=== PATIENT | female | born 1985 | race Asian ===

== ENCOUNTER 2024-01-28 13:21 | Outpatient (CLI) | payer OTHER, SELFPAY ==
--- NOTE | ~2024-01-28 | US_ITS ---
EXAMINATION: US pelvic complete DATE: 01/28/2024 13:39 INDICATION: Displacement of intrauterine contraceptive device. TECHNIQUE: Multiple transabdominal sonographic images of the pelvis were obtained. COMPARISON: Ultrasound 04/26/2018 FINDINGS: The uterus measures 11.7 x 4.3 x 6.0 cm. There is no free fluid in the pelvis. The endometrial comple x measures 4 mm in thickness. There is an intrauterine device in expected position. There is a 14 mm intramural fibroid. There is a 9 mm intramural fibroid. The right ovary measures 3.4 x 2.2 x 3.3 cm. The left ovary measures 6.8 x 4.0 x 5.1 cm. There is a 4.4 cm cyst in left ovary. There is normal vas cular flow in the ovaries. IMPRESSION: 1. Intrauterine device in expected position. 2. Small uterine fibroids. 3. 2.4 cm cyst in left ovary, likely a follicular cyst. Reviewed, dictated and finalized at location A.
== END 2024-01-28 13:22 ==
LOC: MICIMG 13:23
PROVIDERS: PCP Nurse Practitioner Women's Health; Visit Provider Nurse Practitioner Women's Health
DX: D25.1 Intramural leiomyoma of uterus (principal); N83.202 Unspecified ovarian cyst, left side; Z97.5 Presence of (intrauterine) contraceptive device
CPT/HCPCS: 76856

== ENCOUNTER 2024-09-09 12:32 | Outpatient (CLI) | payer OTHER, SELFPAY ==
--- NOTE | ~2024-09-09 | MM_ITS ---
EXAMINATION: MM screening alexis BI w tahir HISTORY: Screening TECHNIQUE: Craniocaudal and mediolateral oblique 3-D tomosynthesis images were obtained and synthetic 2-D images were generated. CAD analysis was submitted and interpreted. COMPARISON: No prior mammogram is available for comparison at this institution. BREAST PARENCHYMAL COMPOSITION: Dense: The breasts are extremely dense, which lowers the sensitivity of mammography. FINDINGS: There is a mass in the superior aspect of the right breast on MLO view, overlying the pecto ralis muscle. The left breast is unremarkable without suspicious mass, calcifications or architectura l distortion. IMPRESSION: 1. Right breast mass superiorly on MLO view, posterior third. 2. Additional mammographic views and possible breast ultrasound are recommended. BI-RADS Category 0: Incomplete: Needs additional imaging evaluation. Reviewed, dictated and finalized at location A. IMPRESSION: 1. Right breast mass superiorly on MLO view, posterior third. 2. Additional mammographic views and possible breast ultrasound are recommended . BI-RADS Category 0: Incomplete: Needs additional imaging evaluation.
== END 2024-09-09 12:33 | disposition home or self-care (01) ==
LOC: MICIMG 12:33
PROVIDERS: PCP Nurse Practitioner; Visit Provider Nurse Practitioner
DX: Z12.31 Encounter for screening mammogram for malignant neoplasm of breast (principal); R92.8 Other abnormal and inconclusive findings on diagnostic imaging of breast
CPT/HCPCS: 77063; 77067

== ENCOUNTER 2024-09-19 10:41 | Outpatient (CLI) | payer OTHER, SELFPAY ==
--- NOTE | ~2024-09-19 | MMUS_ITS ---
EXAMINATION: MM diagnostic alexis RT w tahir, US breast RT limited HISTORY: 39-year-old woman presents with asymmetry from baseline mammography for diagnostic evaluatio n. TECHNIQUE: Additional 3-D tomosynthesis images of the right breast were performed and synthetic 2-D i mages were generated. CAD analysis was submitted and interpreted. High resolution limited right breast ultrasound was performed. COMPARISON: Reference is made to patient's baseline mammogram performed 09/09/2024. BREAST PARENCHYMAL COMPOSITION: Dense: The breasts are extremely dense, which lowers the sensitivity of mammography. FINDINGS: MAMMOGRAPHIC FINDINGS: The asymmetry persists with spot compression, for which dedicated ultrasound will be performed. ULTRASOUND: At the 12:00 position of the right breast approximately 4 cm from the nipple is a well-circumscribed anechoic avascular structure measuring 9.6 x 14 x 2.4 mm, consistent with a simple cyst for which no further follow-up is needed. Sonographic evaluation of the remainder of the upper outer quadrant of the right breast demonstrates benign fibroglandular elements without a cystic or solid lesion of concern. IMPRESSION: No mammographic/tomographic or sonographic evidence to suggest the presence of malignancy. Resumption of yearly screening is recommended. BI-RADS Category 2: Benign finding(s). Reviewed, dictated and finalized at location A. IMPRESSION: No mammographic/tomographic or sonographic evidence to suggest the presence of malignancy. Resumption of yearly screening is recommended. BI-RADS Category 2: Benign finding(s).
== END 2024-09-19 10:42 | disposition home or self-care (01) ==
LOC: ANHIMG 10:43
PROVIDERS: PCP Emergency Medicine; Visit Provider Obstetrics & Gynecology Gynecology
DX: R92.8 Other abnormal and inconclusive findings on diagnostic imaging of breast (principal)
CPT/HCPCS: 76642; 77061; 77065; G0279